=== PATIENT | female | born 1930 | race Caucasian/White ===

== ENCOUNTER 2017-05-27 10:27 | Outpatient (CLI) | payer OTHER | END 2017-05-27 10:29 | disposition home or self-care (01) | LOC: SONOGRAMA 10:27 | DX: C73 Malignant neoplasm of thyroid gland (principal) ==

== ENCOUNTER 2018-05-26 11:58 | Outpatient (CLI) | payer OTHER | END 2018-05-26 13:36 | disposition home or self-care (01) | LOC: SONOGRAMA 11:58 | DX: C73 Malignant neoplasm of thyroid gland (principal) ==

== ENCOUNTER 2019-06-08 13:01 | Outpatient (CLI) | payer OTHER | END 2019-06-08 13:10 | disposition home or self-care (01) | LOC: SONOGRAMA 13:01 → MAMO-SONO 13:15 | DX: C73 Malignant neoplasm of thyroid gland (principal) ==